=== PATIENT | female | born 1985 | race American Indian/Alaskan Native ===

== ENCOUNTER 2016-05-30 07:02 | Emergency (ER) | payer OTHER ==
--- NOTE | 2016-05-30 09:40 | Emergency Department Report ---
ED General Adult HPI - General Chief complaint: Chest Pain Stated complaint: CHEST PAIN Time Seen by Provider: 05/30/16 09:32 Source: patient Mode of arrival: Ambulatory Limitations: No Limitations - History of Present Illness Initial comments: 30-year-old female comes in for complaint of right upper quadrant pain that radiates to her back which woke her up out of her sleep. Patient reports that she had vomiting no nausea no fever no chills. She reports this has been going on for 2 days. Patient denies any alcohol use or abuse. - Related Data Previous Rx's Medication Instructions Recorded Last Taken Type HYDROcodone/APAP 5-325 [[place] 1 each PO Q6HR PRN #12 tablet 05/30/16 Unknown Rx 5/325] Allergies Allergy/AdvReac Type Severity Reaction Status Date / Time No Known Allergies Allergy Unverified 05/30/16 07:18 ED Review of Systems ROS: Stated complaint: CHEST PAIN Other details as noted in HPI Gastrointestinal: as per HPI, abdominal pain (RUG) ED Past Medical Hx - Past Medical History Previous Medical History?: Yes Hx Asthma: Yes Additional medical history: vaginal delivery x 2 - Surgical History Past Surgical History?: No Hx Breast Surgery: Yes (Reduction) - Social History Smoking Status: Never Smoker Substance Use Type: Non Opiate Pain - Medications Home Medications: Home Medications Medication Instructions Recorded Confirmed Last Taken Type HYDROcodone/APAP 5-325 [[place] 1 each PO Q6HR PRN #12 tablet 05/30/16 Unknown Rx 5/325] ED Physical Exam - General Limitations: No Limitations General appearance: alert, in no apparent distress - Head Head exam: Present: atraumatic, normocephalic - Respiratory Respiratory exam: Present: normal lung sounds bilaterally - Cardiovascular Cardiovascular Exam: Present: regular rate, normal rhythm - GI/Abdominal GI/Abdominal exam: Present: soft, tenderness (right upper quadrant), guarding, normal bowel sounds. Absent: distended, rigid - Extremities Exam Extremities exam: Present: normal inspection. Absent: pedal edema ED Course Vital Signs 05/30/16 07:18 Temperature 98.3 F Pulse Rate 72 Respiratory 18 Rate Blood Pressure 132/77 O2 Sat by Pulse 99 Oximetry ED Medical Decision Making - Lab Data Result diagrams: 05/30/16 09:35 05/30/16 09:35 - Medical Decision Making Evaluated by this provider in fast track. Ordered CBC CMP lipase amylase and UA. Discussed with Dr. Sullivan he recommends doing a ultrasound of the abdomen limited. We will continue to follow up on patient's results to determine the best way of treating her. Verbalized understanding. Ultrasound revealed cholelithiasis. We will treat patient with [place] refer her to surgery. Thus with Dr. Sullivan are important aspects of the course with this patient. Patient verbalized understanding Critical care attestation.: If time is entered above; I have spent that time in minutes in the direct care of this critically ill patient, excluding procedure time. ED Disposition Clinical Impression: Cholelithiasis and cholecystitis without obstruction Qualifiers: Cholelithiasis location: gallbladder Cholecystitis acuity: acute Qualified Code (s): K80.00 - Calculus of gallbladder with acute cholecystitis without obstruction Disposition: DISCHARGED TO HOME OR SELFCARE Is pt being admited?: No Does the pt Need Aspirin: No Condition: Stable Instructions: Biliary Colic (ED), Cholecystitis (ED) Additional Instructions: Please follow-up with the surgeon as it is important for the management of your condition. Prescriptions: HYDROcodone/APAP 5-325 [[place] 5/325] 1 each PO Q6HR PRN #12 tablet PRN Reason: Pain Referrals: PRIMARY CAREMD [Primary Care Provider] - 3-5 Days CAROLINE EL MD [Staff Physician] - 3-5 Days Forms: Work/School Release Form(ED)
[2016-05-30 09:45] LABS: Basophils % (Auto) 0.7 % (0.0-1.8); Eosinophils % (Auto) 2.2 % (0.0-4.3); Hematocrit 39.7 % (30.3-42.9); Hemoglobin 13.1 gm/dl (10.1-14.3); Mean Corpuscular HGB Conc 33 % (30-34); Mean Corpuscular Hemoglobin 30 pg (28-32); Mean Corpuscular Volume 91 fl (79-97); Platelet Count 285 K/mm3 (140-440); Red Blood Count 4.35 M/mm3 (3.65-5.03); Red Cell Distribution Width 13.9 % (13.2-15.2); White Blood Count 5.3 K/mm3 (4.5-11.0)
[2016-05-30 10:01] LABS: Alanine Aminotransferase 26 units/L (7-56); Albumin/Globulin Ratio 1.4 %; Alkaline Phosphatase 108 units/L (35-129); Amylase 77 units/L (27-131); Anion Gap 17 mmol/L; BUN/Creatinine Ratio 13.33; Bilirubin,Total 0.3 mg/dL (0.1-1.2); Blood Urea Nitrogen 8 mg/dL (7-17); Calcium 8.8 mg/dL (8.4-10.2); Carbon Dioxide 25 mmol/L (22-30); Chloride 103.2 mmol/L (98-107); Glucose 100 mg/dL (65-100); Lipase 23 units/L (13-60); Potassium 4.3 mmol/L (3.6-5.0); Sodium 141 mmol/L (137-145); Total Protein 6.8 g/dL (6.3-8.2)
[2016-05-30 11:03] LABS: Bilirubin,Urine NEG (Negative); Blood,Urine MOD (Negative); Ketones,Urine NEG (Negative); Leukocyte Esterase,Urine NEG (Negative); Mucus,Urine 1+ /HPF; Nitrite,Urine NEG (Negative); Protein,Urine <15 mg/dL mg/dL (Negative); Urobilinogen,Urine < 2.0 mg/dL (<2.0)
--- NOTE | 2016-05-30 11:21 | Ultrasound Report ---
Limited abdominal ultrasound: Images of the liver are unremarkable. The body and head of the pancreas are well-visualized and appear normal. The tail is not well-visualized. The gallbladder contains sludge. There is a gallstone in the fundus and a second gallstone near the neck both of which are shadowing. The gallbladder wall is not thickened and no pericholecystic fluid. The CBD diameter is 3.1 mm. The right kidney has a length of about 9.5 cm. It is echogenically unremarkable. The proximal abdominal aorta is 1.5 cm in diameter. Impressions: Cholelithiasis.
[2016-05-30] MEDS ORDERED: NORCO 10/325 PO ONE (11:44)
[2016-05-30 12:01] VITALS: BP 130/70
== END 2016-05-30 12:01 | disposition home or self-care (01) ==
LOC: ED 07:02
DX: K80.00 Calculus of gallbladder with acute cholecystitis without obstruction (principal); J45.909 Unspecified asthma, uncomplicated
CPT/HCPCS: 36415; 76705; 80053; 81001; 82150; 83690; 85025

== ENCOUNTER 2016-06-14 05:23 | Emergency (ER) | payer OTHER ==
[2016-06-14 06:24] LABS: Basophils % (Auto) 1.4 % (0.0-1.8); Eosinophils % (Auto) 2.1 % (0.0-4.3); Hematocrit 41.1 % (30.3-42.9); Hemoglobin 13.5 gm/dl (10.1-14.3); Mean Corpuscular HGB Conc 33 % (30-34); Mean Corpuscular Hemoglobin 30 pg (28-32); Mean Corpuscular Volume 91 fl (79-97); Platelet Count 260 K/mm3 (140-440); Red Blood Count 4.51 M/mm3 (3.65-5.03); Red Cell Distribution Width 13.2 % (13.2-15.2); White Blood Count 4.9 K/mm3 (4.5-11.0)
[2016-06-14 06:29] LABS: Alanine Aminotransferase 24 units/L (7-56); Albumin 3.9 g/dL (3.9-5); Albumin/Globulin Ratio 1.3 %; Alkaline Phosphatase 118 units/L (35-129); Anion Gap 17 mmol/L; BUN/Creatinine Ratio 11.66; Bilirubin,Total 0.2 mg/dL (0.1-1.2); Blood Urea Nitrogen 7 mg/dL (7-17); Calcium 8.5 mg/dL (8.4-10.2); Carbon Dioxide 23 mmol/L (22-30); Glucose 105 mg/dL (65-100); Lipase 28 units/L (13-60); Potassium 4.1 mmol/L (3.6-5.0); Sodium 138 mmol/L (137-145)
[2016-06-14 07:25] LABS: Bilirubin,Urine NEG (Negative); Blood,Urine MOD (Negative); Ketones,Urine NEG (Negative); Leukocyte Esterase,Urine NEG (Negative); Mucus,Urine FEW /HPF; Nitrite,Urine NEG (Negative); Protein,Urine <15 mg/dL mg/dL (Negative); Urobilinogen,Urine < 2.0 mg/dL (<2.0); WBC,Urine < 1.0 /HPF (0.0-6.0)
[2016-06-14] MEDS ORDERED: ZOFRAN IV ONE (12:48)
[2016-06-14] MEDS ORDERED: NACL 0.9% 1000 ML 1,000 ML IV ONE (12:48)
[2016-06-14] MEDS ORDERED: DILAUDID IV ONE (12:49)
--- NOTE | 2016-06-14 12:51 | Emergency Department Report ---
HPI - General Chief Complaint: Nausea/Vomiting/Diarrhea Time Seen by Provider: 06/14/16 12:37 - HPI HPI: This is a 30-year-old Afro-[place] female who presents to the emergency department from home with complaint of upper abdominal pain that radiates towards the back and is associated with some nausea and vomiting. Patient has a history of gallstones and she is due to have a cholecystectomy tomorrow by Dr. ferrera. He does not have a primary care doctor. She does not have any medication at home to take for nausea or discomfort. She called the surgeon's office and was told to come to the emergency department for further evaluation. No fever, shortness of breath, diaphoresis. ED Past Medical Hx - Past Medical History Hx Asthma: Yes Additional medical history: vaginal delivery x 2 - Surgical History Past Surgical History?: Yes Hx Breast Surgery: Yes (Reduction) Additional Surgical History: lump removal,Cholelithiasis(scheduled for 06/15/2016 - Social History Smoking Status: Never Smoker Substance Use Type: None - Medications Home Medications: Home Medications Medication Instructions Recorded Confirmed Last Taken Type HYDROcodone/APAP 5-325 [[place] 1 each PO Q6HR PRN #12 tablet 05/30/16 06/09/16 Unknown Rx 5/325] ALBUTEROL Inhaler [Proair] 2 puff IH QID PRN 06/09/16 06/09/16 Unknown History ED Review of Systems ROS: Stated complaint: GALLSTONES, CHEST AND BACK PAIN Other details as noted in HPI Comment: All other systems reviewed and negative Constitutional: denies: chills, fever Eyes: denies: eye pain, eye discharge, vision change ENT: denies: ear pain, throat pain Respiratory: denies: cough, shortness of breath, wheezing Cardiovascular: denies: palpitations, edema Gastrointestinal: abdominal pain, nausea, vomiting Genitourinary: denies: urgency, dysuria, discharge Musculoskeletal: back pain. denies: arthralgia Skin: denies: rash, lesions Neurological: denies: headache, weakness, paresthesias Physical Exam - Physical Exam Vital Signs: Vital Signs 06/14/16 05:45 Temperature 98.6 F Pulse Rate 78 Respiratory 18 Rate Blood Pressure 124/88 [Right] O2 Sat by Pulse 100 Oximetry Physical Exam: GENERAL: The patient is well-developed well-nourished. HEENT: Normocephalic. Atraumatic. Extraocular motions are intact. Patient has moist mucous membranes. Pupils equal reactive to light bilaterally. NECK: Supple. Trachea is midline. CHEST/LUNGS: Clear to auscultation. There is no respiratory distress noted. HEART/CARDIOVASCULAR: Regular. There is no tachycardia. There is no gallop rub or murmur. ABDOMEN: Abdomen is soft. Patient has right upper quadrant and epigastric tenderness to palpation. No guarding rebound tenderness. No peritoneal signs. Patient has normal bowel sounds. There is no abdominal distention. SKIN: There is no rash. There is no edema. There is no diaphoresis. NEURO: The patient is awake, alert, and oriented. The patient is cooperative. The patient has no focal neurologic deficits. The patient has normal speech. MUSCULOSKELETAL: There is no tenderness or deformity. There is no limitation range of motion. There is no evidence of acute injury. ED Course Vital Signs 06/14/16 05:45 Temperature 98.6 F Pulse Rate 78 Respiratory 18 Rate Blood Pressure 124/88 [Right] O2 Sat by Pulse 100 Oximetry ED Medical Decision Making - Lab Data Result diagrams: 06/14/16 05:58 06/14/16 05:58 - Radiology Data Radiology results: report reviewed Abdominal ultrasound shows cholelithiasis without cholecystitis. Unchanged from 05/30/2016 - Medical Decision Making 30-year-old female presents with 4 day history of upper abdominal pain, some nausea and vomiting and some radiation of pain to the back. Patient has known cholelithiasis and is due to have a cholecystectomy tomorrow. Patient's labs and unremarkable here today. Vital signs stable throughout her ED course. An ultrasound reconfirms the cholelithiasis without cholecystitis. The patient was given some IV fluid, Zofran and pain medication. She is feeling better and was told that she should not miss her preop appointment with the general surgeon. Patient asking for discharge home. She is going directly to the surgeon's office for follow-up. She'll return to the ER with any worsening of her symptoms or any acute distress. - Differential Diagnosis cholelithiasis, cholecystitis, pancreatitis, , fibroid Critical Care Time: No Critical care attestation.: If time is entered above; I have spent that time in minutes in the direct care of this critically ill patient, excluding procedure time. ED Disposition Clinical Impression: Cholelithiases Qualifiers: Cholelithiasis location: gallbladder Cholecystitis presence: without cholecystitis Biliary obstruction: without biliary obstruction Qualified Code(s) : K80.20 - Calculus of gallbladder without cholecystitis without obstruction Abdominal pain Qualifiers: Abdominal location: upper abdomen, unspecified Qualified Code(s): R10.10 - Upper abdominal pain, unspecified Disposition: DISCHARGED TO HOME OR SELFCARE Is pt being admited?: No Does the pt Need Aspirin: No Condition: Stable Instructions: Biliary Colic (ED) Additional Instructions: Please go immediately to your preop appointment with your general surgeon. Return to the emergency department with any worsening of your symptoms or any acute distress. Referrals: PRIMARY CAREMD [Primary Care Provider] - 3-5 Days CAROLINE EL MD [Staff Physician] - [facility] Time of Disposition: 14:14
--- NOTE | 2016-06-14 13:51 | Ultrasound Report ---
RIGHT UPPER QUADRANT ULTRASOUND: HISTORY: Right upper quadrant abdominal pain. Technique: Transabdominal ultrasound imaging with Doppler interrogation. FINDINGS: Gallbladder sludge and at least one large shadowing gallstone are identified. No abnormal distention, wall thickening or surrounding fluid. The CBD measures 5 mm. Images of the liver parenchyma, pancreas, right kidney and aorta are within normal limits. No perihepatic ascites. IMPRESSION: Cholelithiasis. No significant change since 05/30/16.
[2016-06-14 14:20] VITALS: BP 119/84
== END 2016-06-14 14:20 | disposition home or self-care (01) ==
LOC: ED 05:23
DX: K80.20 Calculus of gallbladder without cholecystitis without obstruction (principal); J45.909 Unspecified asthma, uncomplicated
CPT/HCPCS: 36415; 76705; 80053; 81001; 83690; 84484; 85025; 93005; 93010; 96361; 96374; 96375; 99284; J1170; J2405; J7030

== ENCOUNTER 2016-06-15 07:08 | Day surgery (SDC) | payer OTHER ==
[2016-06-15] MEDS ORDERED: ceFAZolin 2 GM in NACL 0.9% 100 ML IV NR (07:30)
--- NOTE | 2016-06-15 07:51 | Anesthesia Consultation ---
Anesthesia Consult and Med Hx Date of service: 06/15/16 - Airway Anesthetic Teeth Evaluation: Good ROM Head & Neck: Adequate Mental/Hyoid Distance: Adequate Mallampati Class: Class III Intubation Access Assessment: Possibly Difficult - Pre-Operative Health Status ASA Pre-Surgery Classification: ASA2 - Pulmonary Hx Asthma: Yes - Endocrine Hx Liver Disease: (gallbladder disease) - Other Systems Hx Obesity: Yes (overweight)
[2016-06-15] MEDS ORDERED: PEPCID IV NR (08:00)
[2016-06-15] MEDS ORDERED: LACTATED RINGERS 1,000 ML IV SCH (08:00)
[2016-06-15] MEDS ORDERED: VERSED IV NR (08:00)
--- NOTE | 2016-06-15 08:00 | Anesthesia Day of Surgery ---
Anesthesia Day of Surgery - Day of Surgery Patient Examined: Yes Patient H&P Reviewed: Yes Patient is NPO: Yes
[2016-06-15] MEDS ORDERED: SUBLIMAZE ONE (08:47)
[2016-06-15] MEDS ORDERED: DIPRIVAN 10 MG/ML IV ONE (08:47)
[2016-06-15] MEDS ORDERED: XYLOCAINE MPF 2% ONE (08:49)
[2016-06-15] MEDS ORDERED: ZEMURON IV ONE (08:50)
[2016-06-15] MEDS ORDERED: ANCEF/STERILE WATER 2 GM/20 ML 20 ML IV SCH (09:00)
[2016-06-15] MEDS ORDERED: DECADRON ONE (09:32)
[2016-06-15] MEDS ORDERED: QUELICIN ONE (09:32)
[2016-06-15] MEDS ORDERED: MARCAINE 0.5% INFILTRATI ONE (09:44)
[2016-06-15] MEDS ORDERED: NACL 0.9% IR ONE (09:44)
[2016-06-15] MEDS ORDERED: DILAUDID ONE (10:08)
[2016-06-15] MEDS ORDERED: ZOFRAN ONE ×2 (10:15→11:12)
[2016-06-15] MEDS ORDERED: TORADOL ONE (10:15)
[2016-06-15] MEDS ORDERED: ROBINUL ONE (10:20)
[2016-06-15] MEDS ORDERED: BLOXIVERZ ONE (10:20)
--- NOTE | 2016-06-15 10:37 | Discharge Summary ---
Short Stay Discharge Plan Activity: other (observe x 4 hrs. then september d/c if stable. ice chips today. cl liq in am. solid low fat diet in 48hrs) Weight Bearing Status: Non-Weight Bearing (no lifting over 5 lbs x 2 wks. keep dressings dry x 5 days. aleve 1 tab po q 6-8 hrs prn for breakthrough pain) Diet: other Wound: keep clean and dry Follow up with: CAROLINE EL MD [Staff Physician] - 7 Days
[2016-06-15] MEDS ORDERED: ZOFRAN IV PRN (11:05)
[2016-06-15] MEDS: DILAUDID IV PRN ×2 (11:18→11:39)
[2016-06-15] MEDS ORDERED: PROVENTIL IH ONE (12:06)
--- NOTE | 2016-06-15 12:31 | Operative Report ---
PREOPERATIVE DIAGNOSIS: Gallbladder disease. POSTOPERATIVE DIAGNOSIS: Gallbladder disease. PROCEDURE: Laparoscopic cholecystectomy. SURGEON: Jairo Barnes MD SCIENTIFIC DIVER: Frantz Frazier MD ANESTHESIA: General. ESTIMATED BLOOD LOSS: Minimal. DRAINS: None. COMPLICATIONS: None. DESCRIPTION OF PROCEDURE: The patient was taken to the operating room, prepped and draped in usual sterile fashion. A Veress needle was inserted and CO2 insufflation begun. A 5 mm trocar was then inserted and camera inserted. All other trocars were inserted under direct visualization. Gallbladder was then grasped at the fundus and infundibulum and retracted towards the right subphrenic space. A fair amount of omental adhesions were noted on the undersurface of the gallbladder. These were bluntly dissected free without incident. The entire Calot triangle was then visualized. The cystic duct and artery were delineated in their entire course. Both were then doubly clipped and transected. Hook electrocautery was used to dissect the gallbladder from the overlying liver bed. Prior to complete removal, the liver bed was inspected for bleeding and noted to be dry. The cystic duct and artery stumps were once again visualized. The clips were noted to be securely in place with no evidence of bleeding or bile leak. Gallbladder was then completely freed and brought out through the subxiphoid port. This area was inspected for bleeding and noted to be dry. Subxiphoid trocar was then gently reinserted. All other 5 mm ports were then removed under direct visualization. No bleeding or oozing noted. The subxiphoid trocar was then used to expel the CO2 and the trocar removed. The fascia at this site was closed with a [id number] 0 Vicryl suture. The skin at all port sites were closed with subcuticular 4-0 Vicryl. A 0.5% Marcaine was infiltrated over the port site for postoperative pain relief. The patient tolerated the procedure well and left the OR in stable condition. JOB# [id number] JULIETTE/KULWINDER
--- NOTE | 2016-06-15 12:55 | Post Anesthesia Evaluation ---
- Post Anesthesia Evaluation Patient Participated: Yes Airway Patent: Yes Stable Respiratory Function: Yes Nausea/Vomiting: No Temp > 96.8F: Yes Pain Manageable: Yes Adequeate Hydration: Yes Anesthesia Complications: No Block Receding Appropriately: Not Applicable Patient on Ventilator: No
[2016-06-15] MEDS ORDERED: NORCO 5/325 PO PRN (14:34)
[2016-06-15 19:46] VITALS: BP 120/68
== END 2016-06-15 15:15 | disposition home or self-care (01) ==
LOC: OR 07:08
PROVIDERS: ATTEND Surgery
DX: K80.10 Calculus of gallbladder with chronic cholecystitis without obstruction (principal)
CPT/HCPCS: 47562; 81025; 88304; J0330; J0690; J1100; J1170; J1885; J2250; J2405; J2704; J2710; J3010; J7120

== ENCOUNTER 2017-03-05 10:24 | Emergency (ER) | payer OTHER ==
[2017-03-05 10:55] LABS: Basophils % (Auto) 1.3 % (0.0-1.8); Eosinophils % (Auto) 1.8 % (0.0-4.3); Hematocrit 42.5 % (30.3-42.9); Hemoglobin 14.5 gm/dl (10.1-14.3); Mean Corpuscular HGB Conc 34 % (30-34); Mean Corpuscular Hemoglobin 31 pg (28-32); Mean Corpuscular Volume 90 fl (79-97); Platelet Count 295 K/mm3 (140-440); Red Blood Count 4.73 M/mm3 (3.65-5.03); White Blood Count 5.3 K/mm3 (4.5-11.0)
[2017-03-05 11:15] LABS: Anion Gap 16 mmol/L; BUN/Creatinine Ratio 13; Blood Urea Nitrogen 8 mg/dL (7-17); Calcium 9.4 mg/dL (8.4-10.2); Carbon Dioxide 27 mmol/L (22-30); Chloride 105.4 mmol/L (98-107); Glucose 94 mg/dL (65-100); Potassium 4.5 mmol/L (3.6-5.0); Sodium 144 mmol/L (137-145)
[2017-03-05 14:40] VITALS: BP 143/88
[2017-03-05] MEDS ORDERED: MORPHINE IV ONE (14:59)
[2017-03-05] MEDS ORDERED: ZOFRAN IV ONE (14:59)
--- NOTE | 2017-03-05 15:19 | Emergency Department Report ---
ED General Adult HPI - General Chief complaint: Chest Pain Stated complaint: CHEST PAIN AND SHORTNESS OF BREATH Time Seen by Provider: 03/05/17 14:42 Source: patient Mode of arrival: Ambulatory Limitations: No Limitations - History of Present Illness Initial comments: Patient complains of right sided chest discomfort which she has several hours. She states that she is 3:00 and experienced discomfort in the right side of her chest. She does not complain of epigastric pain as a triage note describes. She states the chest pain was associated with a vague dyspnea but no cough. It was not pleuritic but augmenting definitely on bending or moving her chest. She 's had a recent travel no leg pain or swelling. She has no family history of VTE or CAD which was symptomatic. -: Gradual, year(s) Location: abdomen Radiation: non-radiation Quality: aching Consistency: intermittent Improves with: none Worsens with: none Associated Symptoms: denies other symptoms Treatments Prior to Arrival: none - Related Data Previous Rx's Medication Instructions Recorded Last Taken Type HYDROcodone/APAP 5-325 [[place] 1 - 2 each PO Q4HR PRN #30 tablet 06/15/16 Unknown Rx 5/325] HYDROcodone/APAP 5-325 [[place] 1 each PO Q6HR PRN #10 tablet 03/05/17 Unknown Rx 5/325] Allergies Allergy/AdvReac Type Severity Reaction Status Date / Time No Known Allergies Allergy Unverified 05/30/16 07:18 ED Review of Systems ROS: Stated complaint: CHEST PAIN AND SHORTNESS OF BREATH Other details as noted in HPI Constitutional: denies: chills, fever Eyes: denies: eye pain, eye discharge, vision change ENT: denies: ear pain, throat pain Respiratory: shortness of breath. denies: cough, wheezing Cardiovascular: chest pain. denies: palpitations Endocrine: no symptoms reported Gastrointestinal: denies: abdominal pain, nausea, diarrhea Genitourinary: denies: urgency, dysuria, discharge Musculoskeletal: denies: back pain, joint swelling, arthralgia Skin: denies: rash, lesions Neurological: denies: headache, weakness, paresthesias Psychiatric: denies: anxiety, depression Hematological/Lymphatic: denies: easy bleeding, easy bruising ED Past Medical Hx - Past Medical History Previous Medical History?: Yes Hx Liver Disease: (gallbladder disease) Hx Asthma: Yes Additional medical history: vaginal delivery x 2 - Surgical History Past Surgical History?: Yes Hx Breast Surgery: Yes (Reduction) Additional Surgical History: lump removal,Cholelithiasis(scheduled for 06/15/2016 - Social History Smoking Status: Never Smoker Substance Use Type: None - Medications Home Medications: Home Medications Medication Instructions Recorded Confirmed Last Taken Type HYDROcodone/APAP 5-325 [[place] 1 - 2 each PO Q4HR PRN #30 tablet 06/15/16 Unknown Rx 5/325] HYDROcodone/APAP 5-325 [[place] 1 each PO Q6HR PRN #10 tablet 03/05/17 Unknown Rx 5/325] ED Physical Exam - General Limitations: No Limitations General appearance: alert, in no apparent distress - Head Head exam: Present: atraumatic, normocephalic - Eye Eye exam: Present: normal appearance. Absent: scleral icterus - ENT ENT exam: Present: normal exam, mucous membranes moist - Neck Neck exam: Present: normal inspection - Respiratory Respiratory exam: Present: normal lung sounds bilaterally, chest wall tenderness (clearly sore on bending to sit up on the gurney). Absent: respiratory distress - Cardiovascular Cardiovascular Exam: Present: regular rate, normal rhythm. Absent: systolic murmur, diastolic murmur, rubs, gallop - GI/Abdominal GI/Abdominal exam: Present: soft, normal bowel sounds. Absent: distended, tenderness, guarding, rebound, rigid - Extremities Exam Extremities exam: Present: normal inspection - Back Exam Back exam: Present: normal inspection - Neurological Exam Neurological exam: Present: alert, oriented X3, CN II-XII intact. Absent: motor sensory deficit - Psychiatric Psychiatric exam: Present: normal affect, normal mood, flat affect - Skin Skin exam: Present: warm, dry, intact, normal color. Absent: rash ED Course Vital Signs 03/05/17 03/05/17 10:30 14:39 Temperature 98.7 F 98.6 F Pulse Rate 81 73 Respiratory 16 20 Rate Blood Pressure 155/94 Blood Pressure 143/88 [Left] O2 Sat by Pulse 100 100 Oximetry - Reevaluation(s) Reevaluation #1: 03/05/17 15:22 ED Medical Decision Making - Lab Data Result diagrams: 03/05/17 10:41 03/05/17 10:41 Laboratory Results - last 24 hr 10/01/1203/05/17 03/05/17 10:41 10:41 14:42 WBC 5.3 RBC 4.73 Hgb 14.5 H Hct 42.5 MCV 90 MCH 31 MCHC 34 RDW 14.0 Plt Count 295 Lymph % (Auto) 41.7 H Garrett % (Auto) 8.0 H Eos % (Auto) 1.8 Baso % (Auto) 1.3 Lymph # 2.2 Garrett # 0.4 Eos # 0.1 Baso # 0.1 Seg Neutrophils % 47.2 Seg Neutrophils # 2.5 Sodium 144 Potassium 4.5 Chloride 105.4 Carbon Dioxide 27 Anion Gap 16 BUN 8 Creatinine 0.6 L Estimated GFR > 60 BUN/Creatinine Ratio 13 Glucose 94 Calcium 9.4 Troponin T < 0.010 < 0.010 Laboratory Results - last 24 hr 03/05/17 03/05/17 03/05/17 10:41 10:41 14:42 WBC 5.3 RBC 4.73 Hgb 14.5 H Hct 42.5 MCV 90 MCH 31 MCHC 34 RDW 14.0 Plt Count 295 Lymph % (Auto) 41.7 H Garrett % (Auto) 8.0 H Eos % (Auto) 1.8 Baso % (Auto) 1.3 Lymph # 2.2 Garrett # 0.4 Eos # 0.1 Baso # 0.1 Seg Neutrophils % 47.2 Seg Neutrophils # 2.5 Sodium 144 Potassium 4.5 Chloride 105.4 Carbon Dioxide 27 Anion Gap 16 BUN 8 Creatinine 0.6 L Estimated GFR > 60 BUN/Creatinine Ratio 13 Glucose 94 Calcium 9.4 Troponin T < 0.010 < 0.010 - EKG Data EKG shows normal: sinus rhythm, axis, intervals, QRS complexes, ST-T waves Rate: normal - EKG Data Interpretation: normal EKG - Radiology Data Radiology results: report reviewed interpreted by me: CT the chest is negative Critical care attestation.: If time is entered above; I have spent that time in minutes in the direct care of this critically ill patient, excluding procedure time. ED Disposition Clinical Impression: Chest wall pain Disposition: DC-01 TO HOME OR SELFCARE Is pt being admited?: No Does the pt Need Aspirin: No Condition: Stable Instructions: Chest Pain (ED), Costochondritis (ED) Additional Instructions: Return any acute change or problem. Follow-up with the primary care provider. Your blood pressure wasn't that elevated today and should be rechecked. Prescriptions: HYDROcodone/APAP 5-325 [[place] 5/325] 1 each PO Q6HR PRN #10 tablet PRN Reason: Pain Referrals: PRIMARY CARE, [Primary Care Provider] - 3-5 Days [facility] [Provider Group] - 3-5 Days Time of Disposition: 18:09
[2017-03-05] MEDS ORDERED: NACL ONE (15:25)
--- NOTE | 2017-03-05 16:10 | Cat Scan Report ---
FINAL REPORT PROCEDURE: CT ANGIO CHEST TECHNIQUE: Computerized tomographic angiography of the chest was performed after the IV injection of iodinated nonionic contrast including image processing. The image data was postprocessed using 2-dimensional multiplanar reformatted (MPR) and 3-dimensional (MIP and/or volume rendered) techniques. HISTORY: CP COMPARISON: No prior studies are available for comparison. FINDINGS: Heart and pericardium: Normal. Thoracic aorta: Normal. Pulmonary vasculature: Normal. Lymph nodes: No enlarged thoracic lymph nodes. Lungs: Normal. Pleural space: No effusion, thickening, or pneumothorax. Musculoskeletal structures: No significant abnormality. Upper abdominal structures: No significant abnormality. IMPRESSION: Normal Examination
[2017-03-05] MEDS ORDERED: NORCO 5/325 PO ONE (18:16)
[2017-03-05] MEDS ORDERED: NORCO 5/325 ONE (18:17)
== END 2017-03-05 18:20 | disposition home or self-care (01) ==
LOC: ED 10:24
DX: R07.89 Other chest pain (principal); J45.909 Unspecified asthma, uncomplicated
CPT/HCPCS: 36415; 71275; 80048; 84484; 85025; 93005; 93010; 96374; 96375; 99284; J2270; J2405; Q9967

== ENCOUNTER 2017-04-03 21:50 | Emergency (ER) | payer OTHER ==
[2017-04-03 23:18] LABS: Basophils % (Auto) 0.7 % (0.0-1.8); Eosinophils % (Auto) 1.5 % (0.0-4.3); Hematocrit 42.8 % (30.3-42.9); Hemoglobin 13.9 gm/dl (10.1-14.3); Mean Corpuscular HGB Conc 33 % (30-34); Mean Corpuscular Hemoglobin 30 pg (28-32); Mean Corpuscular Volume 92 fl (79-97); Platelet Count 284 K/mm3 (140-440); Red Blood Count 4.63 M/mm3 (3.65-5.03); Red Cell Distribution Width 13.8 % (13.2-15.2); White Blood Count 7.5 K/mm3 (4.5-11.0)
[2017-04-03 23:27] LABS: Alanine Aminotransferase 17 units/L (7-56); Albumin 4.3 g/dL (3.9-5); Albumin/Globulin Ratio 1.3 %; Alkaline Phosphatase 103 units/L (35-129); Anion Gap 17 mmol/L; BUN/Creatinine Ratio 12; Blood Urea Nitrogen 6 mg/dL (7-17); Calcium 9.1 mg/dL (8.4-10.2); Carbon Dioxide 24 mmol/L (22-30); Chloride 102.4 mmol/L (98-107); Glucose 85 mg/dL (65-100); Lipase 29 units/L (13-60); Potassium 3.9 mmol/L (3.6-5.0); Sodium 139 mmol/L (137-145); Total Protein 7.5 g/dL (6.3-8.2)
[2017-04-04 04:39] VITALS: BP 131/83
== END 2017-04-03 22:45 | disposition left against medical advice (07) ==
LOC: ED 21:50
DX: R07.89 Other chest pain (principal); Z53.21 Procedure and treatment not carried out due to patient leaving prior to being seen by health care provider
CPT/HCPCS: 36415; 80053; 83690; 84484; 84703; 85025; 93005; 93010

== ENCOUNTER 2018-08-28 20:58 | Emergency (ER) | payer OTHER ==
--- NOTE | 2018-08-28 21:35 | Emergency Department Report ---
Blank Doc - Documentation Documentation: 33 y o female presents to Ed cc of pressure like cp/sob and tingling /numbness in Left leg x 2 days labs. ACC evaluate
[2018-08-28 21:51] LABS: Basophils # (Auto) 0.1 K/mm3 (0.0-0.1); Eosinophils # (Auto) 0.1 K/mm3 (0.0-0.4); Eosinophils % (Auto) 1.2 % (0.0-4.3); Hematocrit 42.7 % (30.3-42.9); Hemoglobin 14.3 gm/dl (10.1-14.3); Lymphocytes # (Auto) 2.9 K/mm3 (1.2-5.4); Mean Corpuscular HGB Conc 33 % (30-34); Mean Corpuscular Volume 92 fl (79-97); Monocytes # (Auto) 0.6 K/mm3 (0.0-0.8); Monocytes % (Auto) 8.8 % (0.0-7.3); Platelet Count 300 K/mm3 (140-440); Red Blood Count 4.64 M/mm3 (3.65-5.03); Red Cell Distribution Width 13.6 % (13.2-15.2)
[2018-08-28 22:10] LABS: BUN/Creatinine Ratio 10; Blood Urea Nitrogen 7 mg/dL (7-17); Calcium 9.5 mg/dL (8.4-10.2); Hemolysis Index 10
[2018-08-28] MEDS ORDERED: LIDOCAINE VISCOUS 2% PO ONE (23:21)
[2018-08-28] MEDS ORDERED: ALUM-MAG HYDROX-SIMETH 200-200-20MG/5ML PO ONE (23:22)
--- NOTE | 2018-08-28 23:35 | XRay Report ---
PROCEDURE: XR CHEST ROUTINE 2V TECHNIQUE: PA and lateral views of the chest were obtained. HISTORY: Chest Pain COMPARISONS: None FINDINGS: Heart size and pulmonary vasculature appear normal. No evidence of pulmonary edema or pleural effusio n. No acute infiltrates or masses are seen. No acute bone abnormalities are identified. Incidental note is made of surgical clips in the right upper quadrant. IMPRESSION: No evidence of acute cardiac or pulmonary process.. This document is electronically signed by Rl Velez MD., August 28 2018 11:33:33 PM ET
--- NOTE | 2018-08-29 00:15 | Emergency Department Report ---
ED General Adult HPI - General Chief complaint: Chest Pain Stated complaint: CHEST PAIN SOB LEG NUMBNESS DIZZINESS Time Seen by Provider: 08/28/18 23:16 Source: patient Mode of arrival: Ambulatory Limitations: No Limitations - History of Present Illness Initial comments: pt is a 33 y/o aaf who presents for epigastric farzaneh intermittent x 1 month intermittently pain is exacerbated by po intake position, described as pressure to epigastric non radiating relieve by belching , exacerbated by deep breathing and position, there is no sob, pt did endorse sob asa , however there is no ASA at this time, there is no dizziness no lightheadedness no n/v Onset/Timin -: month(s) Location: chest (epigstric ) Radiation: non-radiation Severity scale (0 -10): 9 Quality: sharp Consistency: intermittent Improves with: rest Worsens with: eating, movement, other (deep breathing ) Associated Symptoms: chest pain (epigastric). denies: cough, fever/chills, nausea/vomiting, rash - Related Data Home Medications Medication Instructions Recorded Confirmed Last Taken Thyroid,Pork [[place]oks Thyroid] 15 mg PO DAILY 04/05/17 04/05/17 03/31/17 Previous Rx's Medication Instructions Recorded Last Taken Type Famotidine [Pepcid] 20 mg PO BID #60 tablet 04/06/17 Unknown Rx Famotidine [Pepcid] 20 mg PO BID #60 tablet 08/29/18 Unknown Rx Ibuprofen 800 mg PO TID PRN #30 tablet 08/29/18 Unknown Rx Allergies Allergy/AdvReac Type Severity Reaction Status Date / Time No Known Allergies Allergy Verified 08/28/18 21:02 ED Review of Systems ROS: Stated complaint: CHEST PAIN SOB LEG NUMBNESS DIZZINESS Other details as noted in HPI Constitutional: denies: chills, fever Eyes: denies: eye pain, eye discharge, vision change ENT: denies: ear pain, throat pain, congestion Respiratory: denies: cough, shortness of breath, wheezing Cardiovascular: chest pain (epigastric pain ). denies: palpitations Endocrine: no symptoms reported Gastrointestinal: denies: abdominal pain, nausea, vomiting, diarrhea, constipation Genitourinary: denies: urgency, dysuria, discharge Musculoskeletal: denies: back pain, joint swelling, arthralgia Skin: denies: rash, lesions Neurological: denies: headache, weakness, paresthesias Psychiatric: denies: anxiety, depression Hematological/Lymphatic: denies: easy bleeding, easy bruising ED Past Medical Hx - Past Medical History Previous Medical History?: Yes Hx Liver Disease: (gallbladder disease) Hx Asthma: Yes Additional medical history: vaginal delivery x 2 - Surgical History Past Surgical History?: Yes Hx Breast Surgery: Yes (Reduction) Additional Surgical History: lump removal,Cholelithiasis(scheduled for 06/15/2016 - Social History Smoking Status: Never Smoker Substance Use Type: None - Medications Home Medications: Home Medications Medication Instructions Recorded Confirmed Last Taken Type Thyroid,Pork [[place]oks Thyroid] 15 mg PO DAILY 04/05/17 04/05/17 03/31/17 History Famotidine [Pepcid] 20 mg PO BID #60 tablet 04/06/17 Unknown Rx Famotidine [Pepcid] 20 mg PO BID #60 tablet 08/29/18 Unknown Rx Ibuprofen 800 mg PO TID PRN #30 tablet 08/29/18 Unknown Rx ED Physical Exam - General Limitations: No Limitations General appearance: alert, in no apparent distress - Head Head exam: Present: atraumatic, normocephalic - Eye Eye exam: Present: normal appearance, PERRL, EOMI Pupils: Present: normal accommodation - ENT ENT exam: Present: normal orophraynx, mucous membranes moist, TM's normal bilaterally, normal external ear exam - Neck Neck exam: Present: normal inspection, full ROM. Absent: tenderness, lymphadenopathy, thyromegaly - Respiratory Respiratory exam: Present: normal lung sounds bilaterally, chest wall tenderness (right anterior lateral chest wall tenderness to deep palpation). Absent: respiratory distress, wheezes, stridor - Cardiovascular Cardiovascular Exam: Present: regular rate, normal rhythm, normal heart sounds. Absent: systolic murmur, diastolic murmur, rubs, gallop - GI/Abdominal GI/Abdominal exam: Present: soft, normal bowel sounds. Absent: distended, tenderness, guarding, rebound, rigid, bruit, hernia - Rectal Rectal exam: Present: deferred - Extremities Exam Extremities exam: Present: normal inspection, full ROM, normal capillary refill. Absent: tenderness, pedal edema, joint swelling, calf tenderness - Back Exam Back exam: Present: normal inspection, full ROM. Absent: tenderness, CVA ten derness (R), CVA tenderness (L), muscle spasm, paraspinal tenderness, vertebral tenderness, rash noted - Neurological Exam Neurological exam: Present: alert, oriented X3, CN II-XII intact, normal gait, reflexes normal - Psychiatric Psychiatric exam: Present: normal affect, normal mood - Skin Skin exam: Present: warm, dry, intact, normal color. Absent: rash ED Course Vital Signs 08/28/18 21:33 Temperature 98.1 F Pulse Rate 90 Respiratory 18 Rate Blood Pressure 152/96 O2 Sat by Pulse 100 Oximetry ED Medical Decision Making - Lab Data Result diagrams: 08/28/18 21:41 08/28/18 21:41 - Radiology Data Radiology results: report reviewed, [facility] Physician: JAVIER RAMIREZ Date of Service: 08/28/18 Procedure(s): XR chest routine 2V Accession Number(s): [id number] cc: JAVIER RAMIREZ Fluoro Time In Minutes: PROCEDURE: XR CHEST ROUTINE 2V TECHNIQUE: PA and lateral views of the chest were obtained. HISTORY: Chest Pain COMPARISONS: None FINDINGS: Heart size and pulmonary vasculature appear normal. No evidence of pulmonary edema or pleural effusion. No acute infiltrates or masses are seen. No acute bone abnormalities are identified. Incidental note is made of surgical clips in the right upper quadrant. IMPRESSION: No evidence of acute cardiac or pulmonary process.. This document is electronically signed by Rl Velez MD., August 28 2018 11:33:33 PM ET Transcribed By: DFN Dictated By: RL VELEZ MD Electronically Authenticated By: RL VELEZ MD Signed Date/Time: 08/28/185 DD/ 03 TD/TT: 08/28/182303 - Medical Decision Making Chest x-ray is normal infiltration opacities pain is improved with GI cocktail given in ED Heart score is 0, Exam office is long as his is one half months DIO score is 0 plan DC home with prescription for Pepcid by mouth twice a day follow-up with GI follow-up with PCP is given a referral to both the next 2 days patient denies chest pain there is no shortness of breath is no nausea vomiting symptoms are improved at this time patient is currently ambulatory alert and oriented patient DC'd home in stable condition. Critical care attestation.: If time is entered above; I have spent that time in minutes in the direct care of this critically ill patient, excluding procedure time. ED Disposition Clinical Impression: Atypical chest pain GERD (gastroesophageal reflux disease) Qualifiers: Esophagitis presence: without esophagitis Qualified Code(s): K21.9 - Gastro- esophageal reflux disease without esophagitis Disposition: TO HOME OR SELFCARE Is pt being admited?: No Does the pt Need Aspirin: No Condition: Stable Instructions: Chest Pain (ED), Gastroesophageal Reflux Disease (ED) Prescriptions: Ibuprofen 800 mg PO TID PRN #30 tablet PRN Reason: pain Famotidine [Pepcid] 20 mg PO BID #60 tablet Referrals: JONATHAN KNUTSON [Primary Care Provider] - 3-5 Days Forms: Work/School Release Form(ED) Time of Disposition: 01:12
[2018-08-29 02:05] VITALS: BP 136/90
== END 2018-08-29 01:15 | disposition home or self-care (01) ==
LOC: ED 20:58
DX: K21.9 Gastro-esophageal reflux disease without esophagitis (principal); J45.909 Unspecified asthma, uncomplicated
CPT/HCPCS: 36415; 71046; 80048; 84484; 84703; 85025; 85379; 93005; 93010; 99284

== ENCOUNTER 2019-02-23 14:04 | Emergency (ER) | payer OTHER ==
[2019-02-23] MEDS ORDERED: ASPIRIN 325 MG TAB PO ONE (14:43)
--- NOTE | 2019-02-23 14:44 | Event Note ---
ED Screening Note Date of service: 02/23/19 Time: 14:41 ED Screening Note: This is a 33 y.o. that presents to the ER with left sided chest pain.= and nausea x 1 day. Reports pain as 10/10 pressure intensity. PMH of asthma Denies cough, fever, chills, palpitations This initial assessment/diagnostic orders/clinical plan/treatment(s) is/are subject to change based on patients health status, clinical progression and re- assessment by fellow clinical providers in the ED. Further treatment and workup at subsequent clinical providers discretion. Patient/guardian urged not to elope from the ED as their condition may be serious if not clinically assessed and managed. Initial orders include: Labs, EKG, & CXR
[2019-02-23 15:10] LABS: Basophils # (Auto) 0.1 K/mm3 (0.0-0.1); Basophils % (Auto) 1.2 % (0.0-1.8); Eosinophils # (Auto) 0.1 K/mm3 (0.0-0.4); Eosinophils % (Auto) 0.9 % (0.0-4.3); Hematocrit 42.2 % (30.3-42.9); Lymphocytes # (Auto) 1.9 K/mm3 (1.2-5.4); Lymphocytes % (Auto) 31.9 % (13.4-35.0); Mean Corpuscular HGB Conc 33 % (30-34); Mean Corpuscular Volume 92 fl (79-97); Monocytes # (Auto) 0.5 K/mm3 (0.0-0.8); Platelet Count 258 K/mm3 (140-440); Red Blood Count 4.58 M/mm3 (3.65-5.03); Red Cell Distribution Width 13.6 % (13.2-15.2)
--- NOTE | 2019-02-23 15:12 | XRay Report ---
CHEST 1 VIEW 2:49 PM INDICATION / CLINICAL INFORMATION: Chest Pain. COMPARISON: 08/28/2018. FINDINGS: SUPPORT DEVICES: None. HEART / MEDIASTINUM: The heart size and pulmonary vasculature are normal. The aorta is normal in [place] y[place]. LUNGS / PLEURA: No significant pulmonary or pleural abnormality. No pneumothorax. ADDITIONAL FINDINGS: There is a prior cholecystectomy. IMPRESSION: No acute findings. Signer Name: Gautam Muller MD Signed: 02/23/2019 3:08 PM Workstation Name: [id number]
[2019-02-23] MEDS ORDERED: ASPIRIN 81 MG TAB CHEW ONE (15:28)
[2019-02-23] MEDS ORDERED: KETOROLAC 30 MG/1 ML INJ IV ONE (15:52)
--- NOTE | 2019-02-23 15:56 | Emergency Department Report ---
ED Chest Pain HPI - General Chief Complaint: Chest Pain Stated Complaint: CHEST PRESSURE Time Seen by Provider: 02/23/19 14:41 Source: patient Mode of arrival: Ambulatory Limitations: No Limitations - History of Present Illness Initial Comments: This is a 33-year-old female recurrent chest pain. She describes a small apparently well-circumscribed area of chest pain in the superior part of her left chest which is nonpleuritic and nonradiating. She states it is tender to the touch and worse on change of position. She describes it as a soreness and n ot pressure. She's had no nausea vomiting swelling or any dyspnea or cough. She states that she has been admitted to the hospital for this before and nothing abnormal was found. The patient was seen in another emergency department yesterday for similar symptoms. Although she didn't volunteer this information to me. She's also been to this facility several times and had a previous a negative CTA of the chest as well as a myocardial perfusion scan. MD Complaint: chest pain -: Gradual, days(s) Onset: during rest Pain Location: left chest Pain Radiation: none Severity: moderate Quality: other Consistency: constant Improves With: nothing Worsens With: nothing re: denies: nausea, vomting, diaphoresis, dyspnea, sense of impending doom Other Symptoms: denies: cough, fever, syncope Treatments Prior to Arrival: none Aspirin use within the Past 7 Days: (0) No - Related Data On Oral Contraceptives: No Home Medications Medication Instructions Recorded Confirmed Last Taken Thyroid,Pork [[place] Thyroid] 15 mg PO DAILY 04/05/17 04/05/17 03/31/17 Previous Rx's Medication Instructions Recorded Last Taken Type Famotidine [Pepcid] 20 mg PO BID #60 tablet 04/06/17 Unknown Rx Famotidine [Pepcid] 20 mg PO BID #60 tablet 08/29/18 Unknown Rx Ibuprofen [Ibuprofen 800] 800 mg PO TID PRN #30 tablet 08/29/18 Unknown Rx Naproxen [Naprosyn] 500 mg PO BID #14 tablet 02/23/19 Unknown Rx traMADol [Ultram 50 MG tab] 50 mg PO Q6HR PRN #10 tablet 02/23/19 Unknown Rx Allergies Allergy/AdvReac Type Severity Reaction Status Date / Time No Known Allergies Allergy Verified 02/23/19 14:43 Heart Score - HEART Score History: Slightly suspicious EKG: Normal Age: < 45 Risk factors: No known risk factors Troponin: < normal limit HEART Score: 0 - Critical Actions Critical Actions: 0-3 pts:0.9-1.7%risk of adverse cardiac event.Candidate for discharge ED Review of Systems ROS: Stated complaint: CHEST PRESSURE Other details as noted in HPI Constitutional: denies: chills, fever Eyes: denies: eye pain, eye discharge, vision change ENT: denies: ear pain, throat pain Respiratory: denies: cough, shortness of breath, wheezing Cardiovascular: chest pain. denies: palpitations Endocrine: no symptoms reported Gastrointestinal: denies: abdominal pain, nausea, diarrhea Genitourinary: denies: urgency, dysuria, discharge Musculoskeletal: denies: back pain, joint swelling, arthralgia Skin: denies: rash, lesions Neurological: denies: headache, weakness, paresthesias Psychiatric: denies: anxiety, depression Hematological/Lymphatic: denies: easy bleeding, easy bruising ED Past Medical Hx - Past Medical History Hx Liver Disease: (gallbladder disease) Hx Asthma: Yes Additional medical history: vaginal delivery x 2 - Surgical History Hx Breast Surgery: Yes (Reduction) Additional Surgical History: lump removal,Cholelithiasis(scheduled for 06/15/2016 - Social History Smoking Status: Never Smoker Substance Use Type: None - Medications Home Medications: Home Medications Medication Instructions Recorded Confirmed Last Taken Type Thyroid,Pork [[place] Thyroid] 15 mg PO DAILY 04/05/17 04/05/17 03/31/17 History Famotidine [Pepcid] 20 mg PO BID #60 tablet 04/06/17 Unknown Rx Famotidine [Pepcid] 20 mg PO BID #60 tablet 08/29/18 Unknown Rx Ibuprofen [Ibuprofen 800] 800 mg PO TID PRN #30 tablet 08/29/18 Unknown Rx Naproxen [Naprosyn] 500 mg PO BID #14 tablet 02/23/19 Unknown Rx traMADol [Ultram 50 MG tab] 50 mg PO Q6HR PRN #10 tablet 02/23/19 Unknown Rx ED Physical Exam - General Limitations: No Limitations General appearance: alert, in no apparent distress - Head Head exam: Present: atraumatic, normocephalic - Eye Eye exam: Present: normal appearance. Absent: scleral icterus - ENT ENT exam: Present: mucous membranes moist - Neck Neck exam: Present: normal inspection - Respiratory Respiratory exam: Present: normal lung sounds bilaterally, chest wall tenderness (highly reproducible with pressure on the area. Pain increases on change in position, i.e. sitting up.). Absent: respiratory distress - Cardiovascular Cardiovascular Exam: Present: regular rate, normal rhythm. Absent: systolic murmur, diastolic murmur, rubs, gallop - GI/Abdominal GI/Abdominal exam: Present: soft, normal bowel sounds - Extremities Exam Extremities exam: Present: normal inspection - Back Exam Back exam: Present: normal inspection - Neurological Exam Neurological exam: Present: alert, oriented X3, CN II-XII intact. Absent: motor sensory deficit - Psychiatric Psychiatric exam: Present: normal mood, flat affect - Skin Skin exam: Present: warm, dry, intact, normal color. Absent: rash ED Course Vital Signs 02/23/19 02/23/19 02/23/19 14:41 15:07 15:11 Temperature 98.5 F Pulse Rate 65 Respiratory 20 12 22 Rate Blood Pressure Blood Pressure 145/94 [Right] O2 Sat by Pulse 97 Oximetry 02/23/19 02/23/19 15:30 16:00 Temperature Pulse Rate 64 56 L Respiratory 24 19 Rate Blood Pressure 127/86 130/82 Blood Pressure [Right] O2 Sat by Pulse 99 99 Oximetry - Reevaluation(s) Reevaluation #1: Patient reports pain has significantly improved with Toradol. She is appropriate for outpatient disposition. 02/23/19 17:02 ED Medical Decision Making - Lab Data Result diagrams: 02/23/19 14:46 02/23/19 14:46 Laboratory Results - last 24 hr 02/23/19 02/23/19 14:46 14:46 WBC 5.9 RBC 4.58 Hgb 14.0 Hct 42.2 MCV 92 MCH 31 MCHC 33 RDW 13.6 Plt Count 258 Lymph % (Auto) 31.9 [place] % (Auto) 8.0 H Eos % (Auto) 0.9 Baso % (Auto) 1.2 Lymph # 1.9 [place] # 0.5 Eos # 0.1 Baso # 0.1 Seg Neutrophils % 58.0 Seg Neutrophils # 3.4 Sodium 138 Potassium 3.6 Chloride 104.1 Carbon Dioxide 25 Anion Gap 13 BUN 9 Creatinine 0.5 L Estimated GFR > 60 BUN/Creatinine Ratio 18 Glucose 94 Calcium 8.7 Troponin T < 0.010 Critical care attestation.: If time is entered above; I have spent that time in minutes in the direct care of this critically ill patient, excluding procedure time. ED Disposition Clinical Impression: Chest wall pain Disposition: DC-01 TO HOME OR SELFCARE Is pt being admited?: No Does the pt Need Aspirin: No Condition: Stable Instructions: Chest Pain (ED), Costochondritis (ED) Additional Instructions: Return any acute change or worsening symptoms. Follow up with the primary care clinic. Rx needed for pain. Return as needed. Prescriptions: Naproxen [Naprosyn] 500 mg PO BID #14 tablet traMADol [Ultram 50 MG tab] 50 mg PO Q6HR PRN #10 tablet PRN Reason: Pain Referrals: JONATHAN DICKEY MD [Primary Care Provider] - 3-5 Days Time of Disposition: 17:04
[2019-02-23 16:01] LABS: BUN/Creatinine Ratio 18; Blood Urea Nitrogen 9 mg/dL (7-17); Calcium 8.7 mg/dL (8.4-10.2); Hemolysis Index 16
[2019-02-23] MEDS ORDERED: HYDROcodone/ACETAMINOPHEN 5-325 MG TAB PO ONE (17:02)
[2019-02-23 18:30] VITALS: BP 122/86
== END 2019-02-23 18:09 | disposition home or self-care (01) ==
LOC: ED 14:04
DX: R07.89 Other chest pain (principal); J45.909 Unspecified asthma, uncomplicated; Z98.890 Other specified postprocedural states; Z79.1 Long term (current) use of non-steroidal anti-inflammatories (NSAID); Z79.899 Other long term (current) drug therapy
CPT/HCPCS: 36415; 71045; 80048; 84484; 85025; 93005; 93010; 96374; 99284; J1885

== ENCOUNTER 2019-06-06 13:32 | Emergency (ER) | payer BC, OTHER ==
--- NOTE | 2019-06-06 13:59 | Event Note ---
ED Screening Note ED Screening Note: severe rlq pain has iud no vag bleed or dc hx asthma This initial assessment/diagnostic orders/clinical plan/treatment(s) is/are subject to change based on patients health status, clinical progression and re- assessment by fellow clinical providers in the ED. Further treatment and workup at subsequent clinical providers discretion. Patient/guardian urged not to elope from the ED as their condition may be serious if not clinically assessed and managed. Initial orders include: labs ua
[2019-06-06 14:35] LABS: Basophils # (Auto) 0.1 K/mm3 (0.0-0.1); Basophils % (Auto) 1.2 % (0.0-1.8); Eosinophils % (Auto) 0.6 % (0.0-4.3); Hematocrit 42.3 % (30.3-42.9); Lymphocytes % (Auto) 37.9 % (13.4-35.0); Mean Corpuscular HGB Conc 33 % (30-34); Mean Corpuscular Volume 92 fl (79-97); Monocytes # (Auto) 0.4 K/mm3 (0.0-0.8); Monocytes % (Auto) 7.1 % (0.0-7.3); Platelet Count 325 K/mm3 (140-440); Red Blood Count 4.58 M/mm3 (3.65-5.03); Red Cell Distribution Width 13.6 % (13.2-15.2)
[2019-06-06 14:49] LABS: HCG Qualitative,Urine Negative (Negative)
[2019-06-06 14:50] LABS: Bacteria,Urine 1+ /HPF (Negative); Bilirubin,Urine NEG (Negative); Blood,Urine SM (Negative); Color,Urine Yellow (Yellow); Mucus,Urine FEW /HPF; Protein,Urine <15 mg/dL mg/dL (Negative)
[2019-06-06 14:58] LABS: Alanine Aminotransferase 13 units/L (7-56); Albumin 4.2 g/dL (3.9-5); BUN/Creatinine Ratio 17; Blood Urea Nitrogen 10 mg/dL (7-17); Calcium 9.2 mg/dL (8.4-10.2); Hemolysis Index 32
[2019-06-06] MEDS ORDERED: SODIUM CHLORIDE 0.9% 1000 ML 1,000 ML IV ONE (15:17)
[2019-06-06] MEDS ORDERED: MORPHINE 4 MG/1 ML INJ IV ONE (15:17)
[2019-06-06] MEDS ORDERED: ONDANSETRON 4 MG/2 ML INJ IV ONE (15:17)
--- NOTE | 2019-06-06 17:30 | Emergency Department Report ---
ED Abdominal Pain HPI - General Chief Complaint: Abdominal Pain Stated Complaint: ABD PAIN Time Seen by Provider: 06/06/19 13:59 Source: patient Mode of arrival: Ambulatory Limitations: No Limitations - History of Present Illness Initial Comments: This is a 33-year-old female nontoxic, well nourished in appearance, no acute signs of distress presents to the ED with c/o of nausea and vomiting and abdominal pain 1 day. Patient describes vomiting as food content and yellow gastric acid. Patient describes abdominal pain as cramping and aching with l evel of 3/10 to right lower abdominal area. Patient denies chest pain, short of breath, fever, chills, headache, stiff neck, numbness or tingling. Patient denies any diarrhea or constipation. Patient denies any recent travels. Patient denies any allergies. MD Complaint: abdominal pain -: days(s) (1) Location: RLQ Radiation: none Migration to: no migration Severity: mild Severity scale (0 -10): 3 Quality: cramping, aching Consistency: constant Improves With: nothing Worsens With: nothing Associated Symptoms: nausea, vomiting. denies: diarrhea, fever, chills, constipation, dysuria, hematemesis, hematochezia, melena, hematuria, anorexia, syncope - Related Data Home Medications Medication Instructions Recorded Confirmed Last Taken Thyroid,Pork [Alpha Thyroid] 15 mg PO DAILY 04/05/17 04/05/17 03/31/17 Previous Rx's Medication Instructions Recorded Last Taken Type Famotidine [Pepcid] 20 mg PO BID #60 tablet 04/06/17 Unknown Rx Famotidine [Pepcid] 20 mg PO BID #60 tablet 08/29/18 Unknown Rx Ibuprofen [Ibuprofen 800] 800 mg PO TID PRN #30 tablet 08/29/18 Unknown Rx Naproxen [Naprosyn] 500 mg PO BID #14 tablet 02/23/19 Unknown Rx traMADoL [Ultram 50 MG tab] 50 mg PO Q6HR PRN #10 tablet 02/23/19 Unknown Rx Acetaminophen/Codeine [Tylenol 1 tab PO Q6H PRN #12 tab 06/06/19 Unknown Rx /Codeine # 3 tab] Ondansetron [Zofran Odt] 4 mg PO Q8HR PRN #20 tab.rapdis 06/06/19 Unknown Rx Allergies Allergy/AdvReac Type Severity Reaction Status Date / Time No Known Allergies Allergy Verified 02/23/19 14:43 ED Review of Systems ROS: Stated complaint: ABD PAIN Other details as noted in HPI Constitutional: denies: chills, fever Eyes: denies: eye pain, eye discharge, vision change ENT: denies: ear pain, throat pain Respiratory: denies: cough, shortness of breath, wheezing Cardiovascular: denies: chest pain, palpitations Endocrine: no symptoms reported Gastrointestinal: abdominal pain, nausea, vomiting. denies: diarrhea Genitourinary: denies: urgency, dysuria, discharge Musculoskeletal: denies: back pain, joint swelling, arthralgia Skin: denies: rash, lesions Neurological: denies: headache, weakness, paresthesias Psychiatric: denies: anxiety, depression Hematological/Lymphatic: denies: easy bleeding, easy bruising ED Past Medical Hx - Past Medical History Hx Liver Disease: (gallbladder disease) Hx Asthma: Yes Additional medical history: vaginal delivery x 2 - Surgical History Hx Breast Surgery: Yes (Reduction) Additional Surgical History: lump removal,Cholelithiasis(scheduled for 06/15/2016 - Social History Smoking Status: Never Smoker Substance Use Type: None - Medications Home Medications: Home Medications Medication Instructions Recorded Confirmed Last Taken Type Thyroid,Pork [Alpha Thyroid] 15 mg PO DAILY 04/05/17 04/05/17 03/31/17 History Famotidine [Pepcid] 20 mg PO BID #60 tablet 04/06/17 Unknown Rx Famotidine [Pepcid] 20 mg PO BID #60 tablet 08/29/18 Unknown Rx Ibuprofen [Ibuprofen 800] 800 mg PO TID PRN #30 tablet 08/29/18 Unknown Rx Naproxen [Naprosyn] 500 mg PO BID #14 tablet 02/23/19 Unknown Rx traMADoL [Ultram 50 MG tab] 50 mg PO Q6HR PRN #10 tablet 02/23/19 Unknown Rx Acetaminophen/Codeine [Tylenol 1 tab PO Q6H PRN #12 tab 06/06/19 Unknown Rx /Codeine # 3 tab] Ondansetron [Zofran Odt] 4 mg PO Q8HR PRN #20 tab.rapdis 06/06/19 Unknown Rx ED Physical Exam - General Limitations: No Limitations General appearance: alert, in no apparent distress - Head Head exam: Present: atraumatic, normocephalic - Eye Eye exam: Present: normal appearance - Neck Neck exam: Present: normal inspection, full ROM. Absent: tenderness, meni ngismus, lymphadenopathy - Respiratory Respiratory exam: Present: normal lung sounds bilaterally. Absent: respiratory distress, wheezes, rales, rhonchi, stridor, chest wall tenderness, accessory muscle use, decreased breath sounds, prolonged expiratory - Cardiovascular Cardiovascular Exam: Present: regular rate, normal rhythm, normal heart sounds. Absent: irregular rhythm, systolic murmur, diastolic murmur, rubs, gallop - GI/Abdominal GI/Abdominal exam: Present: soft, tenderness (RLQ), normal bowel sounds. Absent: distended, guarding, rebound, rigid, diminished bowel sounds - Extremities Exam Extremities exam: Present: normal inspection, full ROM - Back Exam Back exam: Present: normal inspection, full ROM. Absent: tenderness, CVA tenderness (R), CVA tenderness (L), muscle spasm, paraspinal tenderness, vertebral tenderness, rash noted - Neurological Exam Neurological exam: Present: alert, oriented X3, normal gait - Psychiatric Psychiatric exam: Present: normal affect, normal mood - Skin Skin exam: Present: warm, dry, intact, normal color. Absent: rash ED Course Vital Signs 06/06/19 06/06/19 13:44 13:58 Temperature 98.1 F 98 F Pulse Rate 56 L 66 Respiratory 15 16 Rate Blood Pressure 124/81 124/81 O2 Sat by Pulse 99 100 Oximetry - Reevaluation(s) Reevaluation #1: 06/06/19 17:30 Patient is speaking in full sentences with no signs of distress noted. ED Medical Decision Making - Lab Data Result diagrams: 06/06/19 14:20 06/06/19 14:20 - Medical Decision Making This is a 33-year-old female that presents with abdominal pain and n/v. Patient is stable and was examined by me. Labs obtained. UA obtained. CT of abdomen obtained and dictated by the radiologist. Patient is notified of the report with no questions noted by the patient. Vital signs are stable prior to discharge. Patient received medical treatment in the ED which patient stated symptoms has resovled and subsided. Was instructed note to operate any machinery due to possible drowsiness and stated someone will drive the patient home. A by mouth challenge has been obtained and patient tolerated well with no nausea vomiting. Patient was notified of strict precatuions of appendictis symptoms and to return to the ED if symptoms occurs as soon as possible. Patient was also instructed to Follow-up with a primary care doctor in 3-5 days or if symptoms worsen and continue return to emergency room as soon as possible. At time of discharge, the patient does not seem toxic or ill in appearance. No acute signs of distress noted. Patient agrees to discharge treatment plan of care. No further questions noted by the patient. Critical care attestation.: If time is entered above; I have spent that time in minutes in the direct care of this critically ill patient, excluding procedure time. ED Disposition Clinical Impression: Diverticulosis, Right ovarian cyst Abdominal pain Qualifiers: Abdominal location: right lower quadrant Qualified Code(s): R10.31 - Right lower quadrant pain Nausea & vomiting Qualifiers: Vomiting type: unspecified Vomiting Intractability: non-intractable Qualified Code(s): R11.2 - Nausea with vomiting, unspecified Disposition: - TO HOME OR SELFCARE Is pt being admited?: No Does the pt Need Aspirin: No Condition: Stable Instructions: Acetaminophen/Codeine (By mouth), Acute Nausea and Vomiting (ED), Abdominal Pain (ED) Additional Instructions: Follow-up with a primary care and automobile service advisor doctor in 3-5 days or if symptoms worsen and continue return to emergency room as soon as possible. Do not operate any machinery while taking Tylenol with codeine as this may cause drowsiness. Prescriptions: Acetaminophen/Codeine [Tylenol /Codeine # 3 tab] 1 tab PO Q6H PRN #12 tab PRN Reason: Pain , Severe (7-10) Ondansetron [Zofran Odt] 4 mg PO Q8HR PRN #20 tab.rapdis PRN Reason: Nausea Referrals: PRIMARY CAREMD [Primary Care Provider] - 3-5 Days LEIF MI MD [Staff Physician] - 3-5 Days [facility] [Outside] - 3-5 Days [facility] [Provider Group] - 3-5 Days Forms: Work/School Release Form(ED)
[2019-06-06] MEDS ORDERED: MORPHINE 2 MG/1 ML INJ IV ONE (18:26)
[2019-06-06] MEDS ORDERED: MORPHINE 2 MG/1 ML INJ ONE (18:29)
--- NOTE | 2019-06-06 18:38 | Cat Scan Report ---
CT ABDOMEN AND PELVIS WITH CONTRAST INDICATION / CLINICAL INFORMATION: abd pain. TECHNIQUE: Axial CT images were obtained through the abdomen and pelvis after 100 cc Omnipaque 300 milligrams pe rcent IV contrast. All CT scans at this location are performed using CT dose reduction for ALARA by means of automated exposure control. COMPARISON: None available. FINDINGS: LOWER CHEST: No significant abnormality. LIVER: No significant abnormality. GALLBLADDER: Previous cholecystectomy BILE DUCTS: No significant abnormality. PANCREAS: No significant abnormality. SPLEEN: No significant abnormality. ADRENALS: No significant abnormality. RIGHT KIDNEY and URETER: No significant abnormality. LEFT KIDNEY and URETER: No significant abnormality. STOMACH and SMALL BOWEL: No significant abnormality. COLON: Diverticulosis scattered throughout the colon APPENDIX: No significant abnormality. PERITONEUM: No free fluid. No free air. No fluid collection. LYMPH NODES: No significant adenopathy. AORTA and ARTERIES: No significant abnormality. IVC and VEINS: No significant abnormality. URINARY BLADDER: No significant abnormality. REPRODUCTIVE ORGANS: IUD is present in the uterus. 3 cm x 1.75 cm cyst right ovary ADDITIONAL FINDINGS: None. SKELETAL SYSTEM: No significant abnormality. IMPRESSION: 1. Diverticulosis of the colon 2. Right ovarian cyst Signer Name: Stephon Mcfarland MD Signed: 06/06/2019 6:33 PM Workstation Name: [id number]
[2019-06-06 18:54] VITALS: BP 125/89
== END 2019-06-06 18:55 | disposition home or self-care (01) ==
LOC: ED 13:32
DX: K57.90 Diverticulosis of intestine, part unspecified, without perforation or abscess without bleeding (principal); J45.909 Unspecified asthma, uncomplicated; Z98.890 Other specified postprocedural states; Z79.1 Long term (current) use of non-steroidal anti-inflammatories (NSAID); Z79.899 Other long term (current) drug therapy
CPT/HCPCS: 36415; 74177; 80053; 81001; 81025; 85025; 96361; 96374; 96375; 96376; 99284; J2270; J2405; J7030; Q9967